=== PATIENT | female | born 1970 | race Caucasian/White ===

== ENCOUNTER → 2024-03-17 16:32 | Outpatient (REF) | payer OTHER, SELFPAY | LOC: WDC 16:32 | PROVIDERS: ATTENDING PHYSICIAN Obstetrics & Gynecology; FAMILY PHYSICIAN Internal Medicine | DX: Z12.31 Encounter for screening mammogram for malignant neoplasm of breast (principal) | CPT/HCPCS: 77063; 77067 ==

== ENCOUNTER → 2024-04-17 12:47 | Outpatient (REF) | payer OTHER, SELFPAY | LOC: WDC 12:47 | PROVIDERS: ATTENDING PHYSICIAN Obstetrics & Gynecology; FAMILY PHYSICIAN Internal Medicine | DX: R92.2 Inconclusive mammogram (principal) | CPT/HCPCS: 76641 ==

== ENCOUNTER → 2024-06-24 11:36 | Outpatient (REF) | payer OTHER, SELFPAY | LOC: RAD 11:36 | PROVIDERS: ATTENDING PHYSICIAN Internal Medicine | DX: R22.1 Localized swelling, mass and lump, neck (principal) | CPT/HCPCS: 76536 ==

== ENCOUNTER → 2024-10-31 08:52 | Outpatient (REF) | payer OTHER, SELFPAY | LOC: WDC 08:52 | PROVIDERS: ATTENDING PHYSICIAN Obstetrics & Gynecology; FAMILY PHYSICIAN Internal Medicine | DX: R92.8 Other abnormal and inconclusive findings on diagnostic imaging of breast (principal) | CPT/HCPCS: 76642 ==

== ENCOUNTER 2025-02-22 17:48 | Emergency (ER) | payer OTHER, SELFPAY ==
[2025-02-22 17:50] VITALS: BP 137/98
--- NOTE | 2025-02-22 20:05 | ED.SKININJ ---
HPI-Injury
General
Chief Complaint: Skin Problem
Time Seen by Provider: 02/22/25 19:56
Nursing documentation reviewed up to this point in time: agreed with
History of Present Illness-Injury
Initial Injury comments:
54-year-old female presents to the ER for evaluation of pain and swelling in her left knee. Patient reports that yesterday while she was in the garden she was kneeling utilizing hand-held loppers when her hand slipped and the cutting jeni struck
her in the knee. Patient reported mild discomfort at time of injury. Today she has been feeling feverish and noted erythema surrounding area of injury. Patient has no prior history of injury or surgery to this left knee. She took a dose of
ibuprofen this morning. She is unsure of her last tetanus booster. She denies any other complaints or concerns today.
Review of Systems
Review of Systems
Allergies reviewed?: Yes
Phy Exam
Physical Exam
Physical Exam:
Patient is awake, alert, appears in no acute distress, head is NCAT, PERRL, EOMI mucous membranes moist, conjunctiva pink, heart regular rate and rhythm without murmurs or ectopy, lungs are clear to auscultation without wheezes rales or rhonchi, no
JVD, abdomen is soft and nontender on palpation, extremities without edema, right knee examination reveals well-healed midline surgical incision, no joint effusion, no erythema, left knee examination reveals a 3 cm round area of erythema and
induration surrounding a 8 mm linear laceration in the skin which appears partially healed, no proximal streaking, mild diffuse pain on palpation of left knee with palpable joint effusion, erythema localized to area surrounding puncture wound only,
no distal pain or erythema on palpation of left lower extremity, 2+ DP pulses present symmetric bilateral feet ,GCS is 15
Sepsis
Sepsis Screening
Sepsis Assessment: Sepsis Ruled Out
Sepsis Screen
Sepsis Screen: Sepsis Ruled Out
Date: 02/23/25
Time: 02:28
Course
Orders/Labs/Results
Orders:
Orders
02/22/25 20:01
Ketorolac [Toradol] 15 mg IV NOW STA
Tetanus/Diphth/Acelpertussis [Adacel] 0.5 ml IM .ONCE ONE
Knee, Left 4 or More Views [CR Knee - Left 4 Or More View*] Urgent
Comment: puncture wound now with painful effusion
Reason For Exam: trauma
02/22/25 20:07
Basic Metabolic Panel Urgent
CRP [C-Reactive Protein] Urgent
Complete Blood Count/With Diff Urgent
Sed Rate [Erythrocyte Sed Rate] Urgent
02/22/25 21:53
Body Fluid Cell Count Urgent
What is the Body Fluid: joint
Date Specimen was Collected: 02/22/25
Time Specimen was Collected: 21:51
Comment: with DIFF
Body Fluid Crystals Urgent
What is the Body Fluid: joint
Date Specimen was Collected: 02/22/25
Time Specimen was Collected: 21:51
02/22/25 21:54
Fluid Culture with Gram Stain Urgent
LESLIE Source: Joint Fluid
Specimen Description:
Date Specimen was Collected: 02/22/25
Time Specimen was Collected: 21:51
02/22/25 23:14
Ampicillin/Sulbactam 1.5 G [Unasyn] 1.5 gm 0.9% Sodium Chloride [Nss] 50 ml IV NOW
Abnormal Lab Results
02/22/25
20:07
RBC 4.15 L 10^6/uL
(4.20-5.40)
MCH 31.8 H pg
(27.0-31.0)
Absolute Neuts (auto) 7.9 H 10^3/uL
(1.4-6.5)
Absolute Monos (auto) 0.9 H 10^3/uL
(0.1-0.6)
Neutrophils % 76.1 H %
(42.2-75.2)
Lymphocytes % 14.5 L %
(20.5-51.1)
Glucose 111 H mg/dl
(70-99)
C-Reactive Protein 37.10 H mg/L
(0.0-10.00)
02/22/25 20:07
02/22/25 20:07
White blood count reassuring. Electrolytes within normal limits. C-reactive protein elevated. Joint fluid aspirate reassuring white count of only 26,000
Vital Signs
Initial and Last Documented VS:
Initial Vital Signs
Temp Pulse Resp BP Pulse Ox
98.3 F 85 16 137/98 98
02/22/25 17:50 02/22/25 17:50 02/22/25 17:50 02/22/25 17:50 02/22/25 17:50
Last Documented Vital Signs
Temp Pulse Resp BP Pulse Ox
98.3 F 85 16 137/98 98
02/22/25 17:50 02/22/25 17:50 02/22/25 17:50 02/22/25 17:50 02/22/25 20:06
Procedures
Incision/Drainage/Joint Aspiration
Left Knee:
Anethesia: 1% Lidocaine (1ml)
Preparation: cleaned with Betadine (and alcohol)
Type of procedure: aspiration
How much fluid was obtained?: number in mls (25)
Fluid description: cloudy (Straw-colored fluid)
Treatment: bandaid applied
Additional information:
Sterile procedure utilized. Verbal consent obtained from patient and present at bedside
MDM/Problems Addressed
Differential Diagnosis Includes:
Differential diagnosis to consider but not limited to cellulitis, joint infection, contusion, DJD along with other etiologies considered
*Radiology
Radiology exam reviewed: radiology read reviewed (IMPRESSION: Moderate suprapatellar joint effusion. Mild medial compartment osteoarthritis.)
*Pulse Oximetry
SaO2: 98
Oxygen Mode of Delivery: Room air
Patient hypoxic: no
*Critical Care Note
Total Time (30-74mins, 75-104mins- exclusive of procedures): Not Applicable
Update Note
Update Note:
Shortly after my initial evaluation, I reviewed full patient presentation with on-call orthopedic Dr. Evans, who would recommend aspiration for confirmation of possible joint infection. Patient tolerated arthrocentesis well. Awaiting results.
Late entry-patient tolerated arthrocentesis well. I reviewed arthrocentesis results with Dr. Evans who would agree that white count of 26,000 and synovial fluid would be reassuring that this is not acute bacterial joint infection. Patient is
given dose of Unasyn for treatment of cellulitis along with prescription for Augmentin. I discussed with patient and pending Gram stain at the current time along with use of the antibiotics and anticipated normal healing course. I
discussed with them strict return precautions. They expressed understanding of discharge plan, medication usage and had no questions prior to leaving the department.
ED Attending Note
-
Portions of this chart may have been created with voice recognition software.� Occasional wrong word or��sound alike� substitutions may have occurred due to the inherent limitations of voice recognition software.
Discharge Plan
Departure
Patient Disposition: Home (Routine Discharge)
Date of Disposition: 02/22/25
Time of Disposition: 23:37
Patient with high blood pressure during this ER visit?: No
Discharge Problem:
Cellulitis, Acute joint effusion, Need for [id number] (Tdap) vaccine
Instructions: Swollen Joints (DC), Tdap (Tetanus, Diphtheria, Pertussis) Vaccine CDC Vaccine Information State, Cellulitis (skin infection) in adults - ED (DC)
Prescriptions:
New
amoxicillin-pot clavulanate 875-125 mg tablet
1 tab PO BID Qty: 14 0RF
No Action
atorvastatin 10 mg Tablet
20 mg PO DAILY
levothyroxine 50 mcg Capsule
50 mcg PO DAILY
Referrals:
Maurice Evans MD [Active, Orthopedics] - Follow up in 5-7 days
Discharge Problem: Cellulitis; Acute joint effusion
UNKNOWN - PT DOES,NOT KNOW [Family Provider]
Activity Restrictions/Additional Instructions:
Wash area of injury twice daily with soap and water. You may apply topical antibiotic ointment, bacitracin as available [id number], twice daily to help with healing. Please return to the ER for any concerns including but not limited to
fever, worsening pain, worsening redness or swelling. Complete course of antibiotics as prescribed. You may use Tylenol and ibuprofen as needed for discomforts.
Interventions
Interventions:
*Risk Screen - Suicide Last Done: 02/22/25 17:50
*General Assessment Last Done: 02/22/25 23:00
*Neglect/Abuse Screening Last Done: 02/22/25 17:50
*Nursing Disposition Last Done: 02/22/25 23:53
ED-Skin Assessment Last Done: 02/22/25 22:55
Discharge Date and Time
Discharge Date/Time: 02/22/25 23:54
Print Language: SLOVENIAN
[2025-02-22] MEDS: TORADOL 15 MG IV (20:16)
[2025-02-22] MEDS: ADACEL 0.5 ML IM (20:17)
[2025-02-22 20:20] LABS: Hematocrit 39.3 % (37.0-47.0); Hemoglobin 13.2 g/dL (12.0-16.0); Mean Corp Hgb Conc. 33.6 g/dL (33.0-37.0); Mean Corpuscular Volume 94.7 fL (81.0-99.0); Nucleated Red Blood Cells % 0 %; Platelet Count 224 10^3/uL (130-400); Red Cell Dist. Width 12.1 % (11.5-14.5)
[2025-02-22 20:32] LABS: Blood Urea Nitrogen 16 mg/dl (7-17); Calcium 10.0 mg/dl (8.4-10.2); Carbon Dioxide 26 mmol/L (22-30); Chloride 106 mmol/L (98-107); Glucose 111 mg/dl (70-99); Potassium 4.4 mmol/L (3.5-5.1); Sodium 140 mmol/L (135-145); eGFR > 60.00
[2025-02-22 20:34] LABS: C-Reactive Protein 37.10 mg/L (0.0-10.00)
[2025-02-22 22:44] LABS: Body Fluid Second Tech CMC
[2025-02-22] MEDS: UNASYN IV (23:28)
== END 2025-02-22 23:54 | disposition home or self-care (01) ==
LOC: EMR 17:48
PROVIDERS: EMERGENCY PHYSICIAN Emergency Medicine
DX: L03.116 Cellulitis of left lower limb (principal); S81.012A Laceration without foreign body, left knee, initial encounter; W45.8XXA Other foreign body or object entering through skin, initial encounter; M25.462 Effusion, left knee; M17.12 Unilateral primary osteoarthritis, left knee; Z23 Encounter for immunization
CPT/HCPCS: 20610; 90471; 96365; 96375; 99284; 73564; 80048; 85025; 85652; 86140; 87015; 87070; 87205; 89051; 89060; 90715

== ENCOUNTER → 2025-03-19 08:53 | Outpatient (REF) | payer OTHER, SELFPAY | LOC: WDC 08:53 | PROVIDERS: ATTENDING PHYSICIAN Obstetrics & Gynecology; FAMILY PHYSICIAN Internal Medicine | DX: Z12.31 Encounter for screening mammogram for malignant neoplasm of breast (principal) | CPT/HCPCS: 77063; 77067 ==